=== PATIENT | male | born 1950 | race Caucasian/White ===

== ENCOUNTER 2017-04-17 05:13 | Inpatient (IN) | payer BC, OTHER ==
--- NOTE | 2017-04-02 09:41 | PAT Medication Instructions ---
Service Date April 02, 2017. Current Home Medication List Aspirin (Aspirin Ec), 81 MG PO QPM B-Complex Vitamins (Vitamin B Complex), 1 TAB PO QAM Cholecalciferol (Vitamin D3), 1 CAP PO QAM Hydroxyurea (Hydrea Cap), 500 MG PO BID Lisinopril (Zestril), 10 MG PO QPM Metformin Hcl (Glucophage), 500 MG PO BID Naproxen (Naprosyn), 500 MG PO BID [Fungal Cream], 1 DOSE TOP PRN [Fungal Cream], 1 DOSE TOP PRN Medication Instructions For Your Scheduled Surgery - Hold the following medications 48 hours prior to surgery: Metformin Hcl (Glucophage), 500 MG PO BID - Hold the following medications 24 hours prior to surgery: [Fungal Cream], 1 DOSE TOP PRN Lisinopril (Zestril), 10 MG PO QPM - Hold the following medications the morning of surgery: Naproxen (Naprosyn), 500 MG PO BID (otherwise okay to continue per surgeon) B-Complex Vitamins (Vitamin B Complex), 1 TAB PO QAM Cholecalciferol (Vitamin D3), 1 CAP PO QAM - Take the following medications the morning of surgery with a sip of water OTHERWISE NOTHING TO EAT OR DRINK AFTER MIDNIGHT: Hydroxyurea (Hydrea Cap), 500 MG PO BID - Take the following medications as scheduled the night before surgery: Aspirin (Aspirin Ec), 81 MG PO QPM Hydroxyurea (Hydrea Cap), 500 MG PO BID Naproxen (Naprosyn), 500 MG PO BID If you have any questions please call us at [phone] or [phone] or [phone]
[2017-04-02 10:54] LABS: CALCIUM 8.8 mg/dl (8.5-10.1)
[2017-04-02 10:58] LABS: BUN/CREATININE RATIO 23.2 (10-20); CREATININE 0.92 mg/dl (0.60-1.40); POTASSIUM 4.4 mmol/L (3.5-5.1)
[2017-04-02 11:00] LABS: URINE APPEARANCE CLEAR (CLEAR); URINE BILIRUBIN NEG (NEG); URINE COLOR YELLOW; URINE NITRITE NEG (NEG); URINE SPECIFIC GRAVITY 1.014 (1.000-1.030); UROBILINOGEN NEG (NEG); ZZUR CULT IF INDIC CLEAN CATCH NO
[2017-04-02 11:05] LABS: MANUAL MICROSCOPIC REQUIRED? NO; REVIEW REQ? NO
[2017-04-02 11:08] LABS: PARTIAL THROMBOPLASTIN RATIO 1.3; PROTHROMBIN TIME (PATIENT) 11.1 SECONDS (9.0-12.0)
--- NOTE | 2017-04-16 13:42 | HISTORY & PHYSICAL EXAMINATION ---
DATE OF ADMISSION: 04/17/2017 CHIEF COMPLAINT: Right hip pain. HISTORY OF PRESENT ILLNESS: Maciel Marie is a 66-year-old male with a multiple year history of right hip pain. The patient rates his pain a 6/10. He has pain with his daily activities. He has limited standing and walking tolerance. Pain is worse with weightbearing. The patient ambulates with a cane. He has had NSAIDs and home exercise program without relief. He is now scheduled for right hip replacement. PAST MEDICAL HISTORY: Diabetes with an A1c of 7.5 and thrombocytopenia. He denies heart disease or DVT. PAST SURGICAL HISTORY: Hernia repair and pilonidal cyst excision. SOCIAL HISTORY: The patient denies alcohol or tobacco use. He lives in a single story home. He is and works as a professor. FAMILY HISTORY: Negative for DVT. MEDICATIONS: List is unavailable. ALLERGIES: None. REVIEW OF SYSTEMS: See HPI. Ten other systems reviewed, all negative. PHYSICAL EXAMINATION: VITAL SIGNS: Height 5 feet 10 inches, weight 210 pounds, BMI 29. GENERAL: This is a well-developed, well-nourished male who is alert and oriented x3. Mood and affect are appropriate. HEENT: Normocephalic, atraumatic. Mucous membranes are moist and intact. NECK: Supple without lymphadenopathy. HEART: Regular rate and rhythm without murmurs, rubs or gallops. LUNGS: Clear to auscultation without wheezes or rhonchi. ABDOMEN: Soft and nontender. Bowel sounds are equal and active. EXTREMITIES: No ecchymosis, redness or warmth. Thigh and calf are soft and nontender. Log roll of the hip reproduces pain in the groin. He is neurovascularly intact with +5/5 strength. X-RAY EXAMINATION: AP and lateral views show joint space narrowing and osteophyte formation. He also has large cystic formation. There is partial collapse of the femoral head. IMPRESSION: Degenerative joint disease, right hip, severe. PLAN: The patient will be admitted for a right total hip arthroplasty. We will plan on aspirin for DVT prophylaxis. The patient will have [facility] for home physical therapy. PCP is Dr. Mekhi Denton in [place].
[2017-04-17] VITALS (10 sets, daily range): BP systolic 108–136; BP diastolic 63–77; PULSE 57–95; TEMP 36.6–37.4; O2SAT 94–100; Ht 177.8 cm; Wt 95.8 kg
[~2017-04-17] VITALS: Ht 177.8 cm; Wt 95.8 kg
[~2017-04-17 05:13] MED LIST: ASPI81TA28 PO; B-COTAB18 PO; CHOL2000 PO; FUNGAL CREAM TOP; GLC/500 PO; HYDR500C3 PO; LISI-461 PO; NAPR-1169 PO
[2017-04-17] MEDS ORDERED: NURSING VERBAL MED ORDER STA (05:39)
[2017-04-17] MEDS ORDERED: LACTATED RINGER'S 1000ML IV SCH (06:00)
[2017-04-17] MEDS ORDERED: LACTATED RINGER'S 1000ML 500 ML IV ONE (06:00)
[2017-04-17] MEDS ORDERED: LACTATED RINGER'S 1000ML 1,000 ML IV SCH (06:00)
[2017-04-17 06:37] LABS: ESTIMATED AVERAGE GLUCOSE 171 mg/dl; HA1C FLAG Normal (Normal)
[2017-04-17] MEDS ORDERED: BUPIVACAINE 0.5 % 5 MG/1 ML PF 10ML VIAL ONE (06:39)
[2017-04-17] MEDS: TRANEXAMIC ACID INJ 1,000 MG in SODIUM CHLORIDE 0.9% 100ML 100 ML IV SCH ×2 (06:40→10:30)
[2017-04-17] MEDS ORDERED: CeleBREX 200 MG CAP ONE (06:43)
[2017-04-17] MEDS ORDERED: GABAPENTIN 300 MG CAP PO ONE (06:44)
[2017-04-17] MEDS ORDERED: METOCLOPRAMIDE HCL 10 MG TAB PO ONE (06:44)
[2017-04-17] MEDS ORDERED: FAMOTIDINE 20 MG TAB ONE (06:44)
[2017-04-17] MEDS ORDERED: DEXAMETHASONE 4 MG TAB ONE (06:44)
[2017-04-17] MEDS ORDERED: ACETAMINOPHEN 500 MG TAB PO ONE (06:44)
[2017-04-17] MEDS ORDERED: OXYCODONE HCL 10 MG TABCR (OXYCONTIN) PO ONE (06:44)
[2017-04-17] MEDS ORDERED: CEFAZOLIN IV 2,000 MG/60 ML D5W IV ONE (06:45)
[2017-04-17] MEDS ORDERED: POVIDONE-IODINE OP SOLN 30 ML BTL ONE (06:52)
[2017-04-17] MEDS ORDERED: MIDAZOLAM HCL 1 MG/ML 2ML VIAL ONE (06:52)
[2017-04-17] MEDS ORDERED: BACITRACIN 50000 UNIT VIAL ONE (06:52)
[2017-04-17] MEDS ORDERED: FENTANYL CITRATE INJ 50 MCG/1 ML 2 ML VIAL ONE (06:52)
--- NOTE | 2017-04-17 06:52 | History & Physical Bridge Note ---
H&P Re-Evaluation Bridge Note: I have examined the patient, reviewed the History & Physical and in the interval since the performance of the History & Physical I have noted the following changes of clinical significance: No changes noted
[2017-04-17] MEDS ORDERED: EpHEDrine SULFATE INJ 50 MG/ML AMP IV PRN (07:45)
[2017-04-17] MEDS ORDERED: ATROPINE SULFATE 0.1 MG/ML 5ML SYR IV PRN (07:45)
[2017-04-17] MEDS ORDERED: PHENYLEPHRINE 100MCG/ML 5ML SYR IV PRN (07:45)
[2017-04-17] MEDS ORDERED: KETOROLAC TROMETHAMINE 30 MG/ML VIAL IV. PRN (07:45)
[2017-04-17] MEDS ORDERED: HYDROmorphone INJ 2 MG/ML SYR/VIAL IV PRN (07:45)
[2017-04-17] MEDS ORDERED: ONDANSETRON INJ 2 MG/ML 2 ML VIAL IV PRN ×2 (07:45→09:00)
[2017-04-17] MEDS ORDERED: PROPOFOL IV EMULSION 10 MG/ML 20 ML VIAL IV ONE (07:52)
[2017-04-17] MEDS ORDERED: LIDOCAINE HCL 2% 2 ML VIAL (20MG/ML) ONE (07:52)
[2017-04-17] MEDS ORDERED: ORTHO JOINT ANESTHETIC ONE (08:07)
[2017-04-17] MEDS: ROPIVACAINE 5MG/ML 30 ML 150 MG, BUPIVACAINE/EPINEPHR 0.5% MPF 30 ML, KETOROLAC TROMETH... INFIL SCH ×12 (08:21→08:38)
[2017-04-17] MEDS: POLYMYXIN B SULFATE 100,000 UNITS in NSS 100ML IR SCH ×2 (08:22→08:38)
[2017-04-17] MEDS: VANCOMYCIN INJ 400 MG in NSS 100ML IR SCH ×2 (08:22→08:38)
--- NOTE | 2017-04-17 08:51 | [facility] Post Operative Brief Note ---
Immediate Operative Summary Operative Date Apr 17, 2017. Pre-Operative Diagnosis Degenerative joint disease, right hip Post-Operative Diagnosis Degenerative joint disease, right hip Procedure(s) Performed Right Total Hip Arthroplasty, Direct Anterior Approach Uncemented Surgeon Dr. Willis Smash Fixer Surgeon(s) Carol Chapman Estimated Blood Loss 250 ML Findings severe dz Specimens A: Right Femoral Head Complication(s) None Disposition Recovery Room / PACU
[2017-04-17] MEDS ORDERED: OXYCODONE HCL IR 5 MG TAB (IMMEDIATE RELEASE) PO PRN (09:00)
[2017-04-17] MEDS ORDERED: DiphenhydrAMINE HCL 50 MG/ML VIAL IV PRN (09:00)
[2017-04-17] MEDS ORDERED: NON-FORMULARY MEDICATION (B-Complex Vitamins (Vitamin B Complex) 1 TAB) PO SCH (09:00)
[2017-04-17] MEDS ORDERED: BISACODYL 10 MG SUPP PR PRN (09:00)
[2017-04-17] MEDS ORDERED: METOCLOPRAMIDE HCL INJ 5 MG/ML 2 ML VIAL IV PRN (09:00)
[2017-04-17] MEDS ORDERED: ZOLPIDEM TARTRATE 5 MG TAB PO PRN (09:00)
[2017-04-17] MEDS ORDERED: ALUMINUM/MAGNESIUM/SIMETH (MAALOX MAX) 30 ML UDC PO PRN (09:00)
[2017-04-17] MEDS ORDERED: MoRPHine SULFATE 2 MG/ML CARP IV PRN (09:00)
[2017-04-17] MEDS ORDERED: MAGNESIUM HYDROXIDE SUSP 30 ML UDC PO PRN (09:00)
[2017-04-17] MEDS ORDERED: SOD PHOSPHATE/SOD BIPHOSPHATE ENEMA 132 ML BTL PR PRN (09:00)
[2017-04-17] MEDS ORDERED: TRAMADOL HCL 50 MG TAB PO PRN (09:00)
--- NOTE | 2017-04-17 09:31 | DIAGNOSTIC IMAGING REPORT ---
RIGHT PELVIS/UNILATERAL HIP 1 VIEW CLINICAL HISTORY: Total right hip arthroplasty. COMPARISON: None FINDINGS: Alignment of the total right hip arthroplasty is anatomic. There is an acetabular screw and surgical drain. There is no fracture or unexpected radiopaque foreign body. IMPRESSION: Expected findings following total right hip arthroplasty. Electronically signed by: Zafar Rossi M.D. 04/17/2017 9:30 AM Dictated Date/Time: 04/17/2017 9:30 AM
--- NOTE | 2017-04-17 09:31 | DIAGNOSTIC IMAGING REPORT ---
INTRAOPERATIVE FLUOROSCOPIC IMAGE OF THE RIGHT HIP CLINICAL HISTORY: Total right hip arthroplasty. COMPARISON STUDY: No previous studies for comparison. Fluoroscopy time: 17.2 seconds. FINDINGS: Single AP image demonstrates anatomic alignment of the right hip arthroplasty. The superior aspect of the acetabular cup was not imaged. There is no periprosthetic fracture or unexpected radiopaque foreign body. IMPRESSION: Expected findings during total right hip arthroplasty. Electronically signed by: Zafar Rossi M.D. 04/17/2017 9:29 AM Dictated Date/Time: 04/17/2017 9:29 AM
[2017-04-17] MEDS: SODIUM CHLORIDE 0.9% 1000ML 1,000 ML IV SCH ×2 (10:31→20:53)
--- NOTE | 2017-04-17 10:54 | Anesthesiology Progress Note ---
Anesthesia Post Op Note Date & Time Apr 17, 2017 at 10:55 Vital Signs Pain Intensity: 0.0 Vital Signs Past 12 Hours Date Time Temp Pulse Resp B/P (MAP) Pulse Ox O2 Delivery O2 Flow Rate FiO2 04/17/17 10:30 92 20 118/71 (87) 100 Nasal Cannula 2.0 04/17/17 10:25 99 Nasal Cannula 2.0 04/17/17 10:04 99 Nasal Cannula 2.0 04/17/17 09:59 37.0 80 16 108/63 (78) 95 Nasal Cannula 2.0 04/17/17 09:30 36.4 85 18 97/58 95 Nasal Cannula 2 04/17/17 09:20 82 18 108/63 100 Nasal Cannula 2 04/17/17 09:10 78 18 106/60 99 Mask 8 04/17/17 09:03 37.0 83 18 85/56 99 Mask 8 04/17/17 05:41 36.6 94 18 136/77 95 Room Air Notes Mental Status: alert / awake / arousable, participated in evaluation Pt Amnestic to Procedure: Yes Nausea / Vomiting: adequately controlled Pain: adequately controlled Airway Patency, RR, SpO2: stable & adequate BP & HR: stable & adequate Hydration State: stable & adequate Anesthetic Complications: no major complications apparent
--- NOTE | 2017-04-17 11:47 | OPERATIVE REPORT ---
DATE OF OPERATION: 04/17/2017 PREOPERATIVE DIAGNOSIS: Severe degenerative arthritis, right hip. POSTOPERATIVE DIAGNOSIS: Same. PROCEDURE: Right total hip replacement. SURGEON: Edgar Willis MD HOSPICE TEAM LEAD: JEROD Botello ANESTHESIA: Spinal. BLOOD LOSS: 250 mL. REPLACEMENT FLUIDS: 1900 mL crystalloid. DRAINS: Hemovacs x1. CULTURES: None. COMPLICATIONS: None. COMPONENTS USED: [employer] Polar hip system: Acetabulum size 56, femur size 4 high offset, and femoral head +8, 36 mm. NOTE: JEROD Botello was present and assisted throughout due to the complicated nature of this case. She helped with preparation and set up, first assisted throughout and personally closed the fascial, subcutaneous and skin layers and applied the postoperative dressing. DESCRIPTION OF PROCEDURE: Following satisfactory spinal, the patient was supine. The right leg was placed in the traction device and left leg in the well leg huynh. Right leg was prepared with ChloraPrep and draped sterilely. Following a surgical time-out, an anterior approach in the interval between the sartorius and tensor muscles was completed. The circumflex femoral vessels were identified and ligated. An anterior capsulotomy was performed. There was severe arthritis with a severely inflamed synovium and general oozing throughout. The femoral neck and head were trimmed and removed. The patient continued to have moderate bleeding throughout. Acetabular self-retraining retractor was placed and acetabular reaming was completed. A 56 shell was impacted under fluoroscopic guidance and secured with a dome screw. Local anesthetic was placed and after irrigation, the polyethylene liner was placed. The femur was placed in a position of external rotation, extension and adduction. Femoral canal was prepared up to the size 4. A trial reduction with a +8 head showed the best leg lengths and quaker of leg lengths using anatomic fluoroscopic landmarks, also good fit and fill of the proximal canal with fluoroscopy. The hip was dislocated. The trial component was removed. The final implant was placed and after irrigation, the hip was reduced with fluoroscopy confirming the position. A Betadine soak was performed for 3 minutes. The Betadine was irrigated. The capsule was closed with 1-0 Vicryl interrupted. A drain was placed. The arthrotomy for the fascia was then closed with a running suture of #1 Vicryl, the subcutaneous tissues with 2-0 Vicryl and the skin with a running subcuticular stitch of 3-0 V-Loc. Dermabond and a dry dressing were applied. The patient was returned to his bed in stable condition. I attest to the content of the Intraoperative Record and any orders documented therein. Any exception s are noted below.
[2017-04-17] MEDS ORDERED: PNEUMOCOCCAL POLYSACCHARIDES 25 MCG/0.5 ML VIAL/SYR IM. ONE (12:45)
[2017-04-17] MEDS ORDERED: PNEUMOCOCCAL ADMINISTRATION CHARGE ONE (12:45)
[2017-04-17] MEDS: MULTIVITAMIN TAB PO SCH (14:09)
[2017-04-17] MEDS: PANTOprazole SOD 40 MG TAB PO SCH (14:09)
[2017-04-17] MEDS: ACETAMINOPHEN 500 MG TAB PO SCH ×2 (14:10→21:06)
[2017-04-17] MEDS ORDERED: TRANEXAMIC ACID INJ 1,000 MG in SODIUM CHLORIDE 0.9% 100ML 100 ML IV SCH (15:00)
[2017-04-17] MEDS: KETOROLAC TROMETHAMINE 15 MG/ML VIAL IV. SCH ×2 (15:16→21:04)
[2017-04-17] MEDS: ASPIRIN 81 MG ECTAB PO SCH (20:48)
[2017-04-17] MEDS: CEFAZOLIN IV 2,000 MG in DEXTROSE 5% 50ML 50 ML IV SCH (20:48)
[2017-04-17] MEDS: HYDROXYUREA 500 MG CAP PO SCH (20:53)
[2017-04-17] MEDS ORDERED: SENNA 8.6 MG TAB PO SCH (21:00)
[2017-04-17] MEDS ORDERED: LISINOPRIL 10 MG TAB PO SCH (21:00)
[2017-04-18 03:02] VITALS: BP 104/65; PULSE 84; TEMP 36.8; O2SAT 95
[2017-04-18] MEDS: KETOROLAC TROMETHAMINE 15 MG/ML VIAL IV. SCH ×2 (03:47→10:07)
[2017-04-18] MEDS: CEFAZOLIN IV 2,000 MG in DEXTROSE 5% 50ML 50 ML IV SCH (03:48)
[2017-04-18] MEDS: SODIUM CHLORIDE 0.9% 1000ML 1,000 ML IV SCH (05:59)
[2017-04-18] MEDS: ACETAMINOPHEN 500 MG TAB PO SCH ×2 (06:00→14:06)
[2017-04-18 06:20] LABS: HEMATOCRIT 22.3 % (42-52); MEAN CELL VOLUME 82.9 fL (80-100); MEAN CORPUSCULAR HGB CONC 31.4 g/dl (32-36); MEAN PLATELET VOLUME 8.8 fL (7.4-10.4); PLATELET COUNT 548 K/uL (130-400); RED BLOOD COUNT 2.69 M/uL (4.7-6.1); WHITE BLOOD COUNT 11.12 K/uL (4.8-10.8)
[2017-04-18 06:34] LABS: ANISOCYTOSIS PRESENT; BASO % 2.6 %; BASO ABS # 0.29 K/uL (0-0.2); COMPLETE YES; EOS % 2.4 %; IG% 4.5 %; LYMPH % 15.6 %; LYMPH ABS # 1.74 K/uL (1.2-3.4); MONO % 6.3 %; NEUT % 68.6 %; OVALOCYTES 2+; SCHISTOCYTES 1+; TEAR DROP CELLS 1+
[2017-04-18 06:40] LABS: BUN/CREATININE RATIO 23.1 (10-20); CALCIUM 7.6 mg/dl (8.5-10.1); CREATININE 1.2 mg/dl (0.60-1.40); POTASSIUM 4.1 mmol/L (3.5-5.1)
[2017-04-18 07:32] VITALS: BP 99/63; PULSE 84; TEMP 36.6; O2SAT 92
[2017-04-18] MEDS: MULTIVITAMIN TAB PO SCH (08:38)
[2017-04-18] MEDS: ASPIRIN 81 MG ECTAB PO SCH (08:38)
[2017-04-18] MEDS: PANTOprazole SOD 40 MG TAB PO SCH (08:38)
[2017-04-18] MEDS: HYDROXYUREA 500 MG CAP PO SCH (08:39)
[2017-04-18] MEDS ORDERED: CHOLECALCIFEROL 1000 INTER.UNIT TAB PO SCH (09:00)
--- NOTE | 2017-04-18 10:46 | Orthopedic Progress Note ---
Orthopedic Progress Note Date of Service Apr 18, 2017. Subjective Post OP Day: 1 Reports: feeling well, pain controlled w PO medications, Denies: complaints, chest pain, SOB, nausea / vomiting, light headedness, calf pain Additional Notes: HGB 7.0, ASYMPTOMATIC. Objective calves soft nontender, N/V intact, hip located, capillary refill less than 2 sec., dressing C/D/I, A&O x3, toes mobile Date Time Temp Pulse Resp B/P (MAP) Pulse Ox O2 Delivery O2 Flow Rate FiO2 04/18/17 08:30 Room Air 04/18/17 07:32 36.6 84 16 99/63 (75) 92 Room Air 04/18/17 03:02 36.8 84 16 104/65 (78) 95 Room Air 04/17/17 23:45 Room Air 04/17/17 23:43 37.2 84 16 111/68 (82) 95 Room Air 04/17/17 18:57 37.4 92 18 123/72 (89) 95 Room Air 04/17/17 15:20 Room Air 04/17/17 15:12 37.2 57 18 127/68 (87) 94 Room Air 04/17/17 13:04 37.2 95 16 129/73 (91) 97 Room Air 04/17/17 12:00 93 19 133/65 (87) 96 Room Air 04/17/17 11:00 86 16 133/72 (92) 98 Nasal Cannula 2.0 Laboratory Results 24 Hours: Test 04/18/17 05:50 White Blood Count 11.12 K/uL Red Blood Count 2.69 M/uL Hemoglobin 7.0 g/dL Hematocrit 22.3 % Mean Corpuscular Volume 82.9 fL Mean Corpuscular Hemoglobin 26.0 pg Mean Corpuscular Hemoglobin Concent 31.4 g/dl Platelet Count 548 K/uL Mean Platelet Volume 8.8 fL Neutrophils (%) (Auto) 68.6 % Lymphocytes (%) (Auto) 15.6 % Monocytes (%) (Auto) 6.3 % Eosinophils (%) (Auto) 2.4 % Basophils (%) (Auto) 2.6 % Neutrophils # (Auto) 7.62 K/uL Lymphocytes # (Auto) 1.74 K/uL Monocytes # (Auto) 0.70 K/uL Eosinophils # (Auto) 0.27 K/uL Basophils # (Auto) 0.29 K/uL Assessment & Plan Assessment: POD #1, RIGHT MADDY POST OP ANEMIA PLATELET DISORDER Plan: PT/ OT DVT PROPH- ASA D/C PLANNING- HOME W HH CONSULT MEDICINE, COMPLICATED HEME HX, HGB 7.0 Inhouse Planning Pain Management: Celebrex, Morphine, PO Tylenol, Oxy IR DVT Prophylaxis: TEDs, SCDs, ASA Discharge Planning Discharge Planning: home with home health Pain Management: Oxycontin, PO Tylenol, Oxy IR DVT Prophylaxis: TEDs, ASA Therapy: Physical Therapy, Occupational Therapy
[2017-04-18] MEDS ORDERED: RXC5 PO (10:55)
[2017-04-18] MEDS ORDERED: ASPEC81 PO (10:55)
[2017-04-18] MEDS ORDERED: ONDA8TAB6 PO (10:55)
[2017-04-18] MEDS ORDERED: CLB200 PO (10:55)
[2017-04-18] MEDS ORDERED: ACET-1138 PO (10:55)
--- NOTE | 2017-04-18 10:57 | Discharge Instructions ---
Discharge Instructions Date of Service Apr 18, 2017. Admission Reason for Admission: Right Hip Degenerative Arthritis Discharge Discharge Diagnosis / Problem: right MADDY Discharge Goals Goal(s): Improve function Activity Recommendations Activity Limitations: as noted below . Instructions / Follow-Up Instructions / Follow-Up ACTIVITY RECOMMENDATIONS: SELF CARE INSTRUCTIONS AFTER TOTAL HIP REPLACEMENT Until the incision and soft tissues around your hip have healed, there is a possibility that the hip prosthesis could dislocate. A. Observe the following precautions to prevent dislocation: 1. Don't bend your hip greater than 90 degrees. 2. Avoid crossing your legs or ankles while standing or lying. 3. Sit with your feet placed 6 inches apart. 4. When sitting, keep your knees below your hips. Sit on a firm surface, avoid deep, soft chairs and couches. Use an elevated toilet seat in the bathroom. 5. Don't bend over at the waist. Use a long handled shoehorn and a sock aid to help you put on your shoes and socks. A industrial welder can help you pickling tank operator objects that are too high or too low to reach. 6. Keep car riding to a minimum for at least one month after surgery. B. Your balance may be shaky for a while. Use crutches or a walker until directed by your doctor. C. Use hand rails when walking on stairs. D. Wear low heeled shoes with non-slip soles. E. Be sure that your floors are free of things that could trip you - throw rugs , electrical cords, small objects. Avoid wet and waxed floors, especially with crutches and canes. F. Try to walk several times a day with rest periods between. G. Continue with all the exercises taught to you in the hospital. Again, make walking a part of your daily routine. SPECIAL CARE INSTRUCTIONS: VERY IMPORTANT TO READ AND REVIEW A. You may still be at risk for phlebitis and blood clots. 1. Wear surgical stockings (BHUMIKA hose) for 2 weeks after surgery to improve circulation and reduce swelling. 2. Take Aspirin 81mg twice daily for 4 weeks or as directed by your doctor. This is your blood thinner. 3. High risk patients may be prescribed a stronger blood thinner if necessary. 4. If you are on Coumadin normally, your family doctor/packager machine should monitor your blood work. Expect a phone call the day of or the day after bloodwork is drawn to adjust your dosage. B. You must take antibiotics before having dental work, bladder, bowel and other surgery. Your doctor will provide you with a permanent card to carry describing precautions. C. Call [facility] if you have a fever, redness or swelling around the incision, cloudy drainage from incision, or sudden increase in pain in your hip, not relieved by your regular pain medication. D. Please call the office at if you have any concerns or questions about your operation or recovery. * YOU MAY SHOWER, NO TUB BATHS UNTIL CLEARED BY YOUR DOCTOR. * WEAR BHUMIKA HOSE 20 HOURS PER DAY FOR 2 WEEKS. * YOU SHOULD USE A WALKER OR CRUTCHES FOR 2-4 WEEKS. THIS WILL HELP PREVENT STRAIN ON YOUR HIP MUSCLE AND ALLOW IT TO HEAL PROPERLY. YOU MAY WEAN TO A CANE TOLERATED. * MOST PATIENTS WILL HAVE HOME NURSING FOR THERAPY. IF YOU DECIDE TO DO OUTPATIENT PHYSICAL THERAPY, PLEASE SCHEDULE THIS 3 TIMES PER WEEK. * YOU MAY HAVE A LARGE, BAND-LUIS LIKE DRESSING (SILVERON). THIS WILL REMAIN ON YOUR INCISION FOR 7 DAYS, THEN CAN BE REMOVED. IF INCISION IS LEAKING THROUGH DRESSING, PLEASE CALL THE OFFICE . FOLLOW UP VISIT: If appointment is not already scheduled: Please call [facility] to make a follow-up appointment for 2 weeks after your surgery at . Current Hospital Diet Patient's current hospital diet: Diabetes Type 2 Diet Discharge Diet Recommended Diet: Diabetes Type 2 Diet Procedures Procedures Performed: Right Total Hip Arthroplasty, Direct Anterior Approach Uncemented Pending Studies Studies pending at discharge: no Laboratory Results Hemoglobin A1c Test 04/17/17 05:48 Range/Units Estimated Average Glucose 171 mg/dl Hemoglobin A1c 7.6 H 4.5-5.6 % Medical Emergencies . Who to Call and When: Medical Emergencies: If at any time you feel your situation is an emergency, please call 911 immediately. . Non-Emergent Contact Non-Emergency issues call your: Primary Care Provider . "Provider Documentation" section prepared by Rodolfo Britt. . VTE Core Measure Inpt VTE Proph given/why not?: Other Anticoagulation (asa), T.E.Aaliyah Pate, SCD's [place] Drug Monitoring Program Search Results: patient reviewed within database, no issues identified
[2017-04-18 10:58] VITALS: BP 103/65; PULSE 80; TEMP 36.6; O2SAT 97
[2017-04-18] MEDS ORDERED: NURSING VERBAL MED ORDER ONE ×2 (11:30→12:00)
[2017-04-18] MEDS ORDERED: SODIUM CHLORIDE 0.9% 1000ML 1,000 ML IV SCH (11:45)
[2017-04-18 11:52] LABS: ALKALINE PHOSPHATASE 49 U/L (45-117); ALT/SGPT 20 U/L (12-78); AST/SGOT 18 U/L (15-37)
[2017-04-18 12:13] LABS: TOTAL IRON BINDING CAPACITY 182 mcg/dl (250-450)
[2017-04-18 15:10] LABS: HEMATOCRIT 24.2 % (42-52)
[2017-04-18 15:17] VITALS: BP 110/65; PULSE 85; TEMP 37; O2SAT 98
[2017-04-18] MEDS ORDERED: FERROUS SULFATE 325 MG TAB PO ONE (15:39)
[2017-04-18 17:00] VITALS: BP 110/65; PULSE 85; TEMP 37; O2SAT 98
[2017-04-18] MEDS ORDERED: FERROUS SULFATE 325 MG TAB PO SCH (17:45)
--- NOTE | 2017-04-18 18:27 | Medical Consult ---
Consultation Date of Consultation: Apr 18, 2017. Attending Physician: Edgar Willis M.D. Reason for Consultation: Postoperative anemia History of Present Illness Patient is a 66-year-old male with a past medical history including essential thrombocythemia, who underwent a right hemiarthroplasty on April [address] Willis. Consult was called after hemoglobin this morning returned at 7.0. Patient's baseline hemoglobin is 10.9 as was measured on March 31 with his primary physician. Social History Smoking Status: Former Smoker Drug Use: none Marital Status: Housing Status: lives with family Allergies Coded Allergies: Itraconazole (Verified Allergy, Unknown, LEGS RED AND ITCHY, 04/17/17) Review of Systems The patient denies chest pain, palpitations, shortness of breath, cough, vision change, hearing change, sore throat, fevers, chills, sweats, weight change, fatigue, nausea, vomiting, abdominal pain, pelvic pain, blood in urine or stool , dysuria, urinary frequency or urgency, lightheadedness, dizziness, headache, memory loss, rash, abnormal bruising or bleeding, night sweats, or allergy symptoms. The review of systems is otherwise negative other than for that already noted above, and at least 10 systems have been reviewed. Physical Exam Date Time Temp Pulse Resp B/P (MAP) Pulse Ox O2 Delivery O2 Flow Rate FiO2 04/18/17 17:00 37.0 85 16 98 Room Air 04/18/17 15:17 37.0 85 16 110/65 (80) 98 Room Air 04/18/17 10:58 36.6 80 16 103/65 (78) 97 Room Air 04/18/17 08:30 Room Air 04/18/17 07:32 36.6 84 16 99/63 (75) 92 Room Air 04/18/17 03:02 36.8 84 16 104/65 (78) 95 Room Air 04/17/17 23:45 Room Air 04/17/17 23:43 37.2 84 16 111/68 (82) 95 Room Air 04/17/17 18:57 37.4 92 18 123/72 (89) 95 Room Air The patient is awake, well-developed and adequately nourished, alert and oriented 3, normocephalic and atraumatic, lying in bed and in no acute distress. HEENT--PERRL, EOMI, mucous membranes and oropharynx dry. Neck--supple, no JVD or bruits, thyroid normal, trachea midline, no adenopathy. Heart--normal S1 and S2, no extra beats, no murmurs, rubs or gallops. Lungs--clear bilaterally with good air movement, no respiratory distress, no accessory muscle use. Abdomen--normal bowel sounds and soft, nontender and nondistended, no hernias or masses, no organomegaly. Extremities--no cyanosis, clubbing or edema. There are good distal pulses b/l. Dermatologic--normal skin turgor, normal color, warm and dry, no abnormal lymph nodes, no rash. Neurologic--cranial nerves II through XII grossly intact. Rheumatologic--limited postsurgical Psychiatric--normal affect. Laboratory Results Last 24 Hours Test 04/18/17 05:50 04/18/17 08:07 04/18/17 11:34 04/18/17 11:56 White Blood Count 11.12 K/uL Red Blood Count 2.69 M/uL Hemoglobin 7.0 g/dL 8.0 g/dL Hematocrit 22.3 % 26.0 % Mean Corpuscular Volume 82.9 fL Mean Corpuscular Hemoglobin 26.0 pg Mean Corpuscular Hemoglobin Concent 31.4 g/dl Platelet Count 548 K/uL Mean Platelet Volume 8.8 fL Neutrophils (%) (Auto) 68.6 % Lymphocytes (%) (Auto) 15.6 % Monocytes (%) (Auto) 6.3 % Eosinophils (%) (Auto) 2.4 % Basophils (%) (Auto) 2.6 % Neutrophils # (Auto) 7.62 K/uL Lymphocytes # (Auto) 1.74 K/uL Monocytes # (Auto) 0.70 K/uL Eosinophils # (Auto) 0.27 K/uL Basophils # (Auto) 0.29 K/uL RDW Standard Deviation 90.3 fL RDW Coefficient of Variation 29.5 % Immature Granulocyte % (Auto) 4.5 % Immature Granulocyte # (Auto) 0.50 K/uL Nucleated RBC Absolute Count (auto) 0.14 K/uL Nucleated Red Blood Cells % 1.2 % Anisocytosis PRESENT Tear Drop Cells 1+ Ovalocytes 2+ Schistocytes 1+ Sodium Level 141 mmol/L Potassium Level 4.1 mmol/L Chloride Level 108 mmol/L Carbon Dioxide Level 25 mmol/L Anion Gap 8.0 mmol/L Blood Urea Nitrogen 28 mg/dl Creatinine 1.20 mg/dl Est Creatinine Clear Calc Drug Dose 68.4 ml/min Estimated GFR () 71.6 Estimated GFR (Non- 61.8 BUN/Creatinine Ratio 23.1 Random Glucose 176 mg/dl Calcium Level 7.6 mg/dl Total Bilirubin 0.2 mg/dl Direct Bilirubin < 0.1 mg/dl Aspartate Amino Transf (AST/SGOT) 18 U/L Alanine Aminotransferase (ALT/SGPT) 20 U/L Alkaline Phosphatase 49 U/L Total Protein 5.4 gm/dl Albumin 2.9 gm/dl Bedside Glucose 214 mg/dl 234 mg/dl Absolute Reticulocyte Count 0.09 10^6/uL Percent Reticulocyte Count 3.1 % Iron Level 24 mcg/dl Total Iron Binding Capacity 182 mcg/dl Vitamin B12 Level 908 pg/mL Folate 11.94 ng/mL Test 04/18/17 15:04 04/18/17 16:42 Hemoglobin 7.5 g/dL Hematocrit 24.2 % Bedside Glucose 257 mg/dl Assessment & Plan Significant anemia postop right total hip arthroplasty--patient's hemoglobin has dropped 4 g since his most recent labs performed. Upon repeat for verification hemoglobin was recorded as 8, and then 3 hours after stopping IV fluids hemoglobin was repeated at 7.5. On discussion earlier in the day, the patient did not want to be transfused without speaking to his fondant cooker, who is treating him for essential thrombocythemia with hydroxyurea. The patient was started on oral iron, and repeat laboratories as noted above. This consult was performed on the Thursday, and the patient is unable to follow-up with his physician for at least 2 days. I therefore recommended that the patient be monitored, since he preferred not to be transfused, as he lives hours away in [facility]. I have discontinued his Toradol and Celebrex. Thrombocythemia--improved on hydroxyurea 500 mg by mouth twice a day. Hypertension--would hold lisinopril 10 mg by mouth daily while he is very anemic until blood pressure has improved. Diabetes mellitus--can resume metformin 500 mg by mouth twice a day tomorrow.
[2017-04-19] MEDS ORDERED: CeleBREX 200 MG CAP PO SCH (21:00)
--- NOTE | 2017-04-21 08:11 | EDITING REQUIRED CODING QUERY ---
CODING QUERY ANEMIA To promote full compliance with coding requirements relating to patient care, physician participation is requested in all cases of icd 9 coder uncertainty. Please assist us with the question(s) below: Coding Question(s): The record reflects the following clinical documentation: Postoperative anemia There are several coding choices for this diagnosis and more specificity is needed for code selection. [place] indicate the type of anemia this patient had: ( x) Acute blood loss anemia ( ) Acute postoperative anemia due to dilutional fluids ( ) Chronic blood loss anemia ( ) Iron deficient anemia due to blood loss ( ) Iron deficiency anemia ( ) Anemia, unspecified or other ( ) Other: (please specify) ( ) Unable to determine Thank you for your time, ANGELITO Weiss, PAPER COLORER
--- NOTE | 2017-04-24 09:52 | DISCHARGE SUMMARY ---
DISCHARGE DIAGNOSIS: Degenerative joint disease, right hip. SECONDARY DIAGNOSIS: None. CONSULTATIONS: Dr. Gomez and Dr. Montesinos. COMPLICATIONS: None. PROCEDURE: The patient underwent a direct anterior right total hip arthroplasty with Dr. Willis on 04/17/2017. BRIEF HISTORY: Please see previously dictated history and physical. HOSPITAL SUMMARY: The patient was admitted on the above day for the above procedure. Procedure went without complication. Postop day 1, the patient was feeling well without complaints. He denied chest pain or shortness of breath. Vital signs were stable. He was afebrile. Dressing was clean, dry and intact. He was neurovascularly intact. Calves were soft and nontender. Hemoglobin was 7.0. The patient was asymptomatic. He began physical therapy per protocol. He was discharged to home later that day in stable condition. For further review please see the chart. Lab, x-ray data and discharge instructions as per chart.
== END 2017-04-18 18:11 | disposition home health service (06) | DRG 470 ==
LOC: C.ACU 05:13 → C.3E 06:30 → ENRESERV 09:30
PROVIDERS: ADMIT Orthopaedic Surgery; ATTEND Orthopaedic Surgery
PROC: 0SR904A Replacement of Right Hip Joint with Ceramic on Polyethylene Synthetic Substitute, Uncemented, Open Approach (ICD-10-PCS; principal; 2017-04-17 07:15)
DX: M16.11 Unilateral primary osteoarthritis, right hip (principal); D62 Acute posthemorrhagic anemia; D69.3 Immune thrombocytopenic purpura; I10 Essential (primary) hypertension; D64.9 Anemia, unspecified; N40.0 Benign prostatic hyperplasia without lower urinary tract symptoms; Z23 Encounter for immunization; Z79.1 Long term (current) use of non-steroidal anti-inflammatories (NSAID); Z87.891 Personal history of nicotine dependence; Z79.82 Long term (current) use of aspirin; Z79.899 Other long term (current) drug therapy